=== PATIENT | male | born 1965 | race Caucasian/White ===

== ENCOUNTER 2018-08-05 06:24 | Observation (INO) | payer OTHER ==
[2018-08-05] MEDS ORDERED: SOD CHLORIDE 0.9% 1,000 ML IV (07:30)
[2018-08-05 07:34] LABS: ADD MAN DIFF? NO
[2018-08-05 07:39] LABS: BASOPHILS % 0.5 % (0.0-2.0); EOSINOPHILS # 0.1 10^3/ul (0.0-0.5); EOSINOPHILS % 0.9 % (0.0-7.0); HEMOGLOBIN 15.3 g/dl (14.0-18.0); LYMPHOCYTES # 0.8 10^3/ul (0.8-2.9); LYMPHOCYTES % 12.2 % (15.0-51.0); MEAN CORPUSCULAR HEMOGLOBIN 28.4 pg (29.0-33.0); MEAN CORPUSCULAR HGB CONC 33.3 g/dl (32.0-37.0); MEAN CORPUSCULAR VOLUME 85.5 fl (82.0-101.0); MEAN PLATELET VOLUME 10.3 fl (7.4-10.4); MONOCYTE # 0.1 10^3/ul (0.3-0.9); MONOCYTES % 1.7 % (0.0-11.0); NEUTROPHIL # 5.6 10^3/ul (1.6-7.5); NEUTROPHILS % 84.2 % (39.0-77.0); PLATELET COUNT 245 10^3/UL (140-415); RED BLOOD COUNT 5.38 10^6/ul (4.70-6.10); RED CELL DISTRIBUTION WIDTH 13.2 % (11.5-14.5)
[2018-08-05 07:39] LABS: WHITE BLOOD COUNT 6.7 10^3/ul (4.8-10.8)
[2018-08-05] MEDS ORDERED: FENTAnyl 50 MCG/ML VIAL (07:45)
[2018-08-05] MEDS ORDERED: IODIXANOL LOCM 100 ML BTL (07:45)
[2018-08-05] MEDS ORDERED: LIDOCAINE 1% (MDV) 20 ML INJ (07:45)
[2018-08-05] MEDS ORDERED: MIDAZOLAM 1 MG/ML 2 ML INJ (07:45)
[2018-08-05] MEDS ORDERED: SOD CHLORIDE 0.9% 500 ML (07:56)
[2018-08-05 07:58] LABS: INR 0.89; PROTIME 12.1 Sec (11.9-14.9); PT RATIO 0.9
[2018-08-05 07:59] LABS: PARTIAL THROMBOPLASTIN TIME 28.4 Sec (23.0-35.0)
[2018-08-05 08:09] LABS: ANION GAP 12 (5-13); CARBON DIOXIDE 22 mmol/L (21-31); CHLORIDE 107 mmol/L (97-110); CREATININE 1.16 mg/dl (0.61-1.24); Estimated GFR > 60 mL/min (>60); GLUCOSE 359 mg/dl (70-220); SODIUM 141 mmol/L (135-144)
[2018-08-05 08:12] LABS: BLOOD UREA NITROGEN 33 mg/dl (7-20); CALCIUM 10.6 mg/dl (8.4-10.2); POTASSIUM 5.3 mmol/L (3.5-5.1)
[2018-08-05] MEDS ORDERED: DIPHENHYDRAMINE 50 MG INJ (08:16)
[2018-08-05] MEDS ORDERED: METHYLPREDNISOLONE 125 MG INJ (08:16)
[2018-08-05] MEDS ORDERED: NITROGLYCERIN (IC) 100 MCG/ML INJ (09:11)
[2018-08-05] MEDS ORDERED: CLOPIDOGREL 300 MG TAB (09:24)
[2018-08-05] MEDS ORDERED: ASPIRIN 325 MG TAB (09:24)
[2018-08-05] MEDS ORDERED: AL HYDROX/MG HYDROX/SIMETH 30 ML CUP PO (10:00)
[2018-08-05] MEDS ORDERED: ACETAMINOPHEN 325 MG TAB PO (10:00)
[2018-08-05] MEDS ORDERED: ONDANSETRON 4 MG INJ IV (10:00)
[2018-08-05] MEDS: SOD CHLORIDE 0.9% 1,000 ML IV (11:54)
[2018-08-05] MEDS ORDERED: GLUCOSE GEL 15 GRAM TUBE BUCCAL (12:00)
[2018-08-05] MEDS ORDERED: GLUCAGON 1 MG INJ IM (12:00)
[2018-08-05] MEDS ORDERED: DEXTROSE 50% 50 ML SYRINGE IV ×2 (12:00)
[2018-08-05] MEDS ORDERED: GLUCOSE GEL 15 GRAM TUBE PO ×2 (12:00)
[2018-08-05 12:29] LABS: HEMOGLOBIN A1C 8.8 % (0-5.9)
[2018-08-05] MEDS: INSULIN ASPART [NOVOLOG] 3 ML PEN SC ×5 (13:34→21:07)
[2018-08-05] MEDS: METOPROLOL 50 MG TAB PO (19:27)
[2018-08-05] MEDS: INSULIN GLARGINE [LANTus] (100 UNITS/ML) SYG SC (20:07)
[2018-08-05] MEDS ORDERED: METOPROLOL 25 MG TAB PO (21:00)
[2018-08-05] MEDS: GABAPENTIN 300 MG CAP PO (21:03)
[2018-08-05] MEDS: ATORVASTATIN 40 MG TAB PO (21:03)
[2018-08-05] MEDS ORDERED: hydrALAzine 20 MG INJ IV (22:30)
[2018-08-06 05:04] LABS: ADD MAN DIFF? NO
[2018-08-06 05:07] LABS: BASOPHILS % 0.1 % (0.0-2.0); EOSINOPHILS % 0.2 % (0.0-7.0); HEMATOCRIT 42.2 % (42.0-52.0); HEMOGLOBIN 14.2 g/dl (14.0-18.0); LYMPHOCYTES # 1.6 10^3/ul (0.8-2.9); MEAN CORPUSCULAR HEMOGLOBIN 28.8 pg (29.0-33.0); MEAN CORPUSCULAR HGB CONC 33.6 g/dl (32.0-37.0); MEAN CORPUSCULAR VOLUME 85.6 fl (82.0-101.0); MONOCYTE # 1.1 10^3/ul (0.3-0.9); MONOCYTES % 7.2 % (0.0-11.0); NEUTROPHIL # 12.1 10^3/ul (1.6-7.5); PLATELET COUNT 230 10^3/UL (140-415); RED BLOOD COUNT 4.93 10^6/ul (4.70-6.10); RED CELL DISTRIBUTION WIDTH 13.2 % (11.5-14.5)
[2018-08-06 05:07] LABS: WHITE BLOOD COUNT 14.9 10^3/ul (4.8-10.8)
[2018-08-06 05:29] LABS: ANION GAP 9 (5-13); BLOOD UREA NITROGEN 31 mg/dl (7-20); CALCIUM 9.5 mg/dl (8.4-10.2); CARBON DIOXIDE 25 mmol/L (21-31); CHLORIDE 106 mmol/L (97-110); Estimated GFR > 60 mL/min (>60); GLUCOSE 270 mg/dl (70-220); POTASSIUM 4.8 mmol/L (3.5-5.1); SODIUM 140 mmol/L (135-144)
[2018-08-06 05:31] LABS: PHOSPHORUS 4.3 mg/dl (2.5-4.9)
[2018-08-06 05:31] LABS: MAGNESIUM 1.6 mg/dl (1.7-2.5)
[2018-08-06] MEDS: MAGNESIUM SULFATE 2 GM/50 ML 50 ML IVPB (06:37)
[2018-08-06] MEDS: INSULIN ASPART [NOVOLOG] 3 ML PEN SC ×4 (08:01→11:55)
[2018-08-06] MEDS ORDERED: MAGNESIUM SULFATE 2 GM/50 ML 50 ML IVPB ×2 (09:00→10:30)
[2018-08-06] MEDS: GABAPENTIN 300 MG CAP PO ×2 (09:08→12:03)
[2018-08-06] MEDS: CLOPIDOGREL 75 MG TAB PO (09:08)
[2018-08-06] MEDS: METOPROLOL 50 MG TAB PO (09:09)
[2018-08-06] MEDS: ASPIRIN (EC) 81 MG TAB PO (09:09)
[2018-08-06] MEDS: BENAZEPRIL 10 MG TAB PO (11:43)
[2018-08-06 17:48] LABS: ADD UMIC YES; UR ASCORBIC ACID NEGATIVE (NEGATIVE); UR BILIRUBIN (Dip) NEGATIVE (NEGATIVE); UR BLOOD (Dip) NEGATIVE (NEGATIVE); UR CLARITY CLEAR (CLEAR); UR COLOR YELLOW (YELLOW); UR GLUCOSE (Dip) 3+ mg/dL (NEGATIVE); UR KETONES (Dip) NEGATIVE (NEGATIVE); UR LEUKOCYTE ESTERASE (Dip) NEGATIVE Leu/ul (NEGATIVE); UR NITRITE (Dip) NEGATIVE (NEGATIVE); UR RBC 1 /HPF (0-5); UR TOTAL PROTEIN (Dip) 2+ mg/dl (NEGATIVE); UR UROBILINOGEN (Dip) NEGATIVE (NEGATIVE); UR WBC 0 /HPF (0-5)
[2018-08-06 18:05] LABS: SODIUM,URINE RANDOM 88 mmol/L (30-90)
[2018-08-09 16:16] LABS: CREATININE, RANDOM URINE 93 mg/dL (20-320); MICROALBUMIN 125.9 mg/dL; MICROALBUMIN/CREATININE RATIO 1354 (<30)
== END 2018-08-06 16:09 | disposition home or self-care (01) ==
LOC: CCL 06:24 → SDS 06:24 → CCL 09:34 → REC 09:35 → ICU 11:34
DX: I25.10 Atherosclerotic heart disease of native coronary artery without angina pectoris (principal); I10 Essential (primary) hypertension; E11.9 Type 2 diabetes mellitus without complications; E78.5 Hyperlipidemia, unspecified; G47.33 Obstructive sleep apnea (adult) (pediatric); E66.9 Obesity, unspecified; Z68.37 Body mass index [BMI] 37.0-37.9, adult; F12.10 Cannabis abuse, uncomplicated; Z79.82 Long term (current) use of aspirin; Z79.84 Long term (current) use of oral hypoglycemic drugs
CPT/HCPCS: 80048; 81001; 81003; 82043; 82962; 83036; 83735; 84100; 84155; 84300; 85025; 85610; 85730; 87081; 92928; 93005; 93458; 94660